=== PATIENT | male | born 1975 | race Caucasian/White ===

== ENCOUNTER 2021-03-12 18:06 | Emergency (ER) | payer MEDICAID ==
[~2021-03-12] VITALS: Ht 157.5 cm; Wt 76.0 kg
[2021-03-12] MEDS ORDERED: IBUPROFEN 600MG TABLET PO ONE (21:45)
[2021-03-12 22:22] VITALS: BP 136/86
== END 2021-03-12 23:02 | disposition home or self-care (01) ==
LOC: ER 18:06
DX: S46.812A Strain of other muscles, fascia and tendons at shoulder and upper arm level, left arm, initial encounter (principal); R03.0 Elevated blood-pressure reading, without diagnosis of hypertension; W01.0XXA Fall on same level from slipping, tripping and stumbling without subsequent striking against object, initial encounter; Y93.89 Activity, other specified; Y92.89 Other specified places as the place of occurrence of the external cause
CPT/HCPCS: 73030; 99283